=== PATIENT | male | born 1990 | race Two or more races ===

== ENCOUNTER → 2017-02-06 | Outpatient (CLI) | payer BC | LOC: BMCIMAGING 09:05 | PROVIDERS: ATTEND Podiatrist Foot & Ankle Surgery | DX: M79.671 Pain in right foot (principal) ==

== ENCOUNTER → 2017-02-20 | Outpatient (CLI) | payer BC | LOC: BMCIMAGING 09:48 | PROVIDERS: ATTEND Podiatrist Foot & Ankle Surgery | DX: M84.374A Stress fracture, right foot, initial encounter for fracture (principal) ==